=== PATIENT | male | born 1935 | race Caucasian/White ===

== ENCOUNTER → 2016-06-20 | Outpatient (CLI) | payer MEDICARE, OTHER ==
[~2016-06-20] MED LIST: BLOOD PRESSURE; ENOX150P SQ; TAB-TAB PO; TOPR100T15 PO; WARF7.5 PO
[2016-06-20 12:12] LABS: POTASSIUM 4.6 MEQ/L (3.5-5.1)
== END ==
LOC: ELAB 09:14
PROVIDERS: ATTEND Urology
DX: I11.9 Hypertensive heart disease without heart failure (principal); C61 Malignant neoplasm of prostate; I48.0 Paroxysmal atrial fibrillation; I71.4 Abdominal aortic aneurysm, without rupture; E66.09 Other obesity due to excess calories
CPT/HCPCS: 36415; 80048; 84153

== ENCOUNTER → 2016-12-21 | Outpatient (CLI) | payer MEDICARE, OTHER ==
[2016-12-21 12:13] LABS: BICARBONATE 28.4 MEQ/L (21.0-32.0); POTASSIUM 4.5 MEQ/L (3.5-5.1)
== END ==
LOC: ELAB 09:06
PROVIDERS: ATTEND Internal Medicine Interventional Cardiology
DX: C61 Malignant neoplasm of prostate (principal); I11.9 Hypertensive heart disease without heart failure; I48.3 Typical atrial flutter; E66.09 Other obesity due to excess calories
CPT/HCPCS: 36415; 80048; 84153

== ENCOUNTER → 2017-06-27 | Outpatient (CLI) | payer MEDICARE, OTHER ==
[2017-06-27 13:57] LABS: CALCIUM 9.4 MG/DL (8.5-10.1); CREATININE 1.07 MG/DL (0.60-1.30)
== END ==
LOC: ELAB 10:05
PROVIDERS: ATTEND Urology
DX: C61 Malignant neoplasm of prostate (principal); R00.1 Bradycardia, unspecified; I11.9 Hypertensive heart disease without heart failure
CPT/HCPCS: 36415; 80048; 84153